=== PATIENT | female | born 1975 | race African-American/Black ===

== ENCOUNTER 2019-09-11 10:24 | Emergency (ER) | payer OTHER ==
[2019-09-11 10:36] VITALS: BP 155/81; PULSE 103; TEMP 97.8; BMI 30.9
[2019-09-11 11:49] LABS: BASO % 0.4 % (0-2.0); EOS % 1.1 % (0-4.5); HEMATOCRIT 37.8 % (32.4-45.2); LYMPH % 23.9 % (8-40); MCH 24.7 pg (25.7-33.7); MCHC 31.8 g/dl (32.0-36.0); MEAN CELL VOLUME 77.6 fl (80-96); MONO % 6.7 % (3.8-10.2); NEUT % 67.9 % (42.8-82.8); PLATELET COUNT 338 K/MM3 (134-434); RBC 4.87 M/mm3 (3.60-5.2); RDW 16.2 % (11.6-15.6); WHITE BLOOD COUNT 7.9 K/mm3 (4.0-10.0)
--- NOTE | 2019-09-11 12:01 | PDOC ---
History of Present Illness - General Chief Complaint: Chest Pain Stated Complaint: CHEST PAIN Time Seen by Provider: 09/11/19 11:15 History Source: Patient Exam Limitations: Clinical Condition - History of Present Illness Initial Comments: 09/11/19 11:57 Patient with past medical history of hypertension on amlodipine presented with complaint of 5-day history of intermittent aching pain to left side of mid sternum which is localized to the upper side of left chest. Patient reported pain when she pressed on left side of her chest over area of pain. Denies nausea, vomiting, shortness of breath, palpitation, sweats, dizziness. Patient reported has been going through a lot of stress the past few weeks and does not know if pain is caused by anxiety. Denies family history of cardiomyopathy. Patient report taking aspirin this morning for symptoms. Denies any other symptoms Is this a multiple visit Asthma Patient?: No Timing/Duration: other (5 days) Past History - Past Medical History Allergies/Adverse Reactions: Allergies Allergy/AdvReac Type Severity Reaction Status Date / Time No Known Allergies Allergy Verified 09/11/19 10:30 Home Medications: Ambulatory Orders Amlodipine Besylate 5 mg PO DAILY 09/11/19 Pravastatin Sodium [Pravachol (Nf)] 40 mg PO HS 09/11/19 COPD: No HTN: Yes - Psycho Social/Smoking Cessation Hx Smoking History: Never smoked Have you smoked in the past 12 months: No Hx Alcohol Use: Yes Drug/Substance Use Hx: No Review of Systems - Review of Systems Able to Perform ROS?: Yes Is the patient limited Estonian proficient: No Constitutional: No: Fever, Malaise, Weakness HEENTM: No: Symptoms Reported, See HPI, Eye Pain, Blurred Vision, Tearing, Recent change in vision, Double Vision, Cataracts, Ear Pain, Ocular Prothesis, Ear Discharge, Nose Pain, Nose Congestion, Tinnitus, Nose Bleeding, Hearing Loss , Throat Pain, Throat Swelling, Mouth Pain, Dental Problems, Difficulty Swallowing, Mouth Swelling, Other Respiratory: No: Symptoms reported, See HPI, Cough, Orthopnea, Shortness of Breath, SOB with Exertion, SOB at Rest, Stridor, Wheezing, Productive cough, Hemoptysis, Other Cardiac (ROS): Yes: Symptoms Reported, See HPI, Chest Pain (aching left side chest pain). No: Edema, Irregular Heart Rate, Lightheadedness, Palpitations, Syncope, Chest Tightness, Other ABD/GI: No: Symptoms Reported, Nausea, Vomiting : No: Symptoms Reported Musculoskeletal: No: Symptoms Reported Integumentary: No: Symptoms Reported Neurological: No: Symptoms reported, Headache, Numbness, Paresthesia, Pre- Existing Deficit, Tingling, Weakness, Unsteady Gait, Ataxia, Dizziness All Other Systems: Reviewed and Negative *Physical Exam - Vital Signs Last Vital Signs Temp Pulse Resp BP Pulse Ox 97.8 F 103 H 18 155/81 100 09/11/19 10:30 09/11/19 10:30 09/11/19 10:30 09/11/19 10:30 09/11/19 10:30 - Physical Exam 09/11/19 12:00 GENERAL: Well developed, well nourished. Awake and alert. No acute distress. HEENT: Normocephalic, atraumatic. PERRLA, EOMI. No conjunctival pallor. Sclera are non-icteric. Moist mucous membranes. Oropharynx is clear. NECK: Supple. Full ROM. CARDIOVASCULAR: Regular rate and rhythm. No murmurs, rubs, or gallops. Distal pulses are 2+ and symmetric. PULMONARY: No evidence of respiratory distress. Lungs clear to auscultation bilaterally. No wheezing, rales or rhonchi. ABDOMINAL: Soft. Non-tender. Non-distended. No rebound or guarding. No organomegaly. Normoactive bowel sounds. MUSCULOSKELETAL Normal range of motion at all joints. Mild reproducible point tenderness to second left intercostal space. EXTREMITIES: No cyanosis. No clubbing. No edema. No calf tenderness. SKIN: Warm and dry. Normal capillary refill. NEUROLOGICAL: Alert, awake, appropriate. Gait is normal without ataxia. PSYCHIATRIC: Cooperative. Good eye contact. Appropriate mood General Appearance: Yes: Nourished, Appropriately Dressed. No: Apparent Distress ED Treatment Course - LABORATORY CBC & Chemistry Diagram: 09/11/19 11:30 - ADDITIONAL ORDERS Additional order review: 09/11/19 11:30 RBC 4.87 MCV 77.6 L MCHC 31.8 L RDW 16.2 H MPV 8.0 Neutrophils % 67.9 Lymphocytes % 23.9 Monocytes % 6.7 Eosinophils % 1.1 Basophils % 0.4 - RADIOLOGY Radiology Studies Ordered: Category Date Time Status CHEST PA & LAT [RAD] Stat Radiology 12/05/19 11:16 Ordered Medical Decision Making - Medical Decision Making 09/11/19 11:58 Patient with past medical history of hypertension on amlodipine presented with complaint of 5-day history of intermittent pain to left side of mid sternum which is localized to the upper side of left chest. Patient reported pain when she pressed on left side of her chest over area of pain. Denies nausea, vomiting, shortness of breath, palpitation, sweats, dizziness. Patient reported has been going through a lot of stress the past few weeks and does not know if pain is caused by anxiety. Denies family history of cardiomyopathy. Patient report taking aspirin this morning for symptoms. Denies any other symptoms Clinical exam unremarkable except point tenderness to second left intercostal space. Normal cardio exam and lungs clear to auscultation. Patient in no acute distress. Symptoms likely costochondral pain from anxiety versus less likely cardiogenic pain. CBC and cardiac profile lab ordered. EKG shows normal sinus rhythm. Chest x- ray ordered to rule out acute chest pathology. Treat based on lab and imaging results 09/11/19 12:36 CBC and chemistry lab unremarkable. Chest x-ray shows no acute pathology. Patient symptoms likely costochondritis from stress. Tylenol 650 mg p.o. ordered for pain. Patient stable for discharge to take Tylenol as needed for pain with strict follow-up, to emergency room if worsening chest pain. Referral given for cardiology follow-up Discharge - Discharge Information Problems reviewed: Yes Clinical Impression/Diagnosis: Costochondral chest pain Condition: Stable Disposition: HOME - Admission No - Follow up/Referral Referrals: Christopher Currie MD [Staff Physician] - - Patient Discharge Instructions Patient Printed Discharge Instructions: DI for Atypical Chest Pain, DI for Costochondritis Additional Instructions: Your lab work and cardiac blood work is normal. Your chest x-ray is normal. Your symptoms likely from muscle pain caused by stress. Take Tylenol as needed for pain. Come back to emergency room if worsening chest pain, shortness of breath, arm numbness or tingling sensation, dizziness with nausea or vomiting. Do relaxation exercise to help decrease stress. Follow-up with referred alarm signaler if symptoms persist otherwise Follow-up with your primary care - Post Discharge Activity
[2019-09-11] MEDS ORDERED: ACETAMINOPHEN 325 MG TABLET (FP) PO ONE (12:32)
[2019-09-11] MEDS ORDERED: ACETAMINOPHEN 325 MG TABLET (FP) ONE (12:40)
--- NOTE | 2019-09-11 15:24 | EKG ---
Test Reason : Blood Pressure : / mmHG Vent. Rate : 086 BPM Atrial Rate : 086 BPM P-R Int : 138 ms QRS Dur : 084 ms QT Int : 350 ms P-R-T Axes : 062 043 038 degrees QTc Int : 418 ms NORMAL SINUS RHYTHM NORMAL ECG NO PREVIOUS ECGS AVAILABLE Confirmed by KAMINI MCDONALD MD ([id number]) on 09/11/2019 3:24:15 PM Referred By: Confirmed By:KAMINI MCDONALD MD
== END 2019-09-11 12:52 | disposition home or self-care (01) ==
LOC: JER 10:24
DX: M94.0 Chondrocostal junction syndrome [Tietze] (principal); I10 Essential (primary) hypertension
CPT/HCPCS: 36415; 71046-TC-FY; 82550; 82553; 84484; 85025; 93005; 93010; 99282-25